=== PATIENT | female | born 1960 | race African-American/Black ===

== ENCOUNTER 2019-07-02 12:12 | Inpatient (IN) | payer OTHER ==
[2019-07-02 15:33] VITALS: BMI 32.8
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
[2019-07-02] MEDS ORDERED: MENTHOL/PHENOL 1 EACH UD MM PRN (16:44)
[2019-07-02] MEDS ORDERED: IBUPROFEN 400 MG TABLET (FP) PO PRN (16:44)
[2019-07-02] MEDS ORDERED: ACETAMINOPHEN 325 MG TABLET (FP) PO PRN (16:44)
[2019-07-02] MEDS ORDERED: MAGNESIUM CITRATE 300 ML BOTTLE PO PRN (16:44)
[2019-07-02] MEDS ORDERED: guaiFENesin 200 MG/10 ML 10 ML UNIT-DOSE CUPS PO PRN (16:44)
[2019-07-02] MEDS ORDERED: LOPERAMIDE HCL 2 MG CAPSULE PO PRN (16:44)
[2019-07-02] MEDS ORDERED: P-EPHED 60MG/TRIPROLIDI 2.5MG TABLET PO PRN (16:44)
[2019-07-02] MEDS ORDERED: MAG HYDROX/AL HYDROX/SIMETH 30 ML UNIT-DOSE CUP PO PRN (16:44)
[2019-07-02] MEDS ORDERED: ALBUTEROL SO4 8 GM HFA INHALER IH PRN (16:45)
[2019-07-02] MEDS ORDERED: MELATONIN 5 MG TABLETS PO PRN (22:00)
[2019-07-02] MEDS: THIAMINE HCL 100 MG TABLET (FP) PO SCH (22:02)
[2019-07-02] MEDS: NICOTINE 21 MG/24 HOURS TOPICAL PATCH TD SCH (22:02)
[2019-07-03] MEDS ORDERED: METHADONE HCL 10 MG TABLET PO SCH (07:15)
[2019-07-03] MEDS ORDERED: METHADONE HCL 40 MG DISPERSABLE TABLET ONE (07:28)
[2019-07-03] MEDS ORDERED: METHADONE HCL 10 MG TABLET ONE (07:28)
[2019-07-03] MEDS: METHADONE 80 MG, METHADONE 10 MG PO SCH (07:29)
[2019-07-03] MEDS: PRENATAL VITAMINS W/ FOLIC ACID TABLET (FP) PO SCH (09:48)
[2019-07-03] MEDS: NICOTINE 21 MG/24 HOURS TOPICAL PATCH TD SCH (09:48)
[2019-07-03 12:49] LABS: HEMATOCRIT 41.9 % (32.4-45.2); HEMOGLOBIN 13.6 GM/dL (10.7-15.3); MCH 31.3 pg (25.7-33.7); MCHC 32.5 g/dl (32.0-36.0); MEAN CELL VOLUME 96.3 fl (80-96); MEAN PLT VOLUME 7.7 fl (7.5-11.1); PLATELET COUNT 258 K/MM3 (134-434); RBC 4.35 M/mm3 (3.60-5.2); RDW 13.2 % (11.6-15.6); WHITE BLOOD COUNT 4.7 K/mm3 (4.0-10.0)
[2019-07-03 12:56] LABS: ALBUMIN 3.7 g/dl (3.4-5.0); BILIRUBIN,TOTAL 0.5 mg/dL (0.2-1); CALCIUM 9.3 mg/dL (8.5-10.1); POTASSIUM 4.4 mmol/L (3.5-5.1); TOT PROT 7.4 g/dl (6.4-8.2)
[2019-07-03 17:17] LABS: URINE APPEARANCE CLOUDY; URINE BILIRUBIN NEGATIVE (NEGATIVE); URINE COLOR YELLOW; URINE GLUCOSE (UA) NEGATIVE (NEGATIVE); URINE KETONE NEGATIVE (NEGATIVE); URINE LEUK ESTERASE NEGATIVE (NEGATIVE); URINE NITRITE NEGATIVE (NEGATIVE); URINE PROTEIN NEGATIVE (NEGATIVE)
[2019-07-03] MEDS: THIAMINE HCL 100 MG TABLET (FP) PO SCH (21:48)
[2019-07-04] MEDS ORDERED: METHADONE HCL 10 MG TABLET ONE (06:23)
[2019-07-04] MEDS ORDERED: METHADONE HCL 40 MG DISPERSABLE TABLET ONE (06:23)
[2019-07-04] MEDS: METHADONE 80 MG, METHADONE 10 MG PO SCH (09:03)
[2019-07-04] MEDS: NICOTINE 21 MG/24 HOURS TOPICAL PATCH TD SCH (09:50)
[2019-07-04] MEDS: PRENATAL VITAMINS W/ FOLIC ACID TABLET (FP) PO SCH (09:50)
[2019-07-04] MEDS: THIAMINE HCL 100 MG TABLET (FP) PO SCH (21:47)
[2019-07-05] MEDS ORDERED: METHADONE HCL 40 MG DISPERSABLE TABLET ONE (06:24)
[2019-07-05] MEDS ORDERED: METHADONE HCL 10 MG TABLET ONE (06:24)
[2019-07-05] MEDS: METHADONE 80 MG, METHADONE 10 MG PO SCH (06:25)
[2019-07-05] MEDS: NICOTINE 21 MG/24 HOURS TOPICAL PATCH TD SCH (09:54)
[2019-07-05] MEDS: PRENATAL VITAMINS W/ FOLIC ACID TABLET (FP) PO SCH (09:54)
[2019-07-05] MEDS: MAGNESIUM HYDROX 2400MG/30ML ORAL SUSPENSION 30 ML CUP PO PRN ×2 (09:54→21:49)
--- NOTE | 2019-07-05 15:17 | CONSULT ---
[facility] Psychiatric Consult - Data Date of interview: 07/05/19 Admission source: [facility] Identifying data: Wetland Scientist approached patient for psychiatric consultation. Patient able to walk into office and sit down to speak to web content writer but after several seconds patient stood up and walked out. Patient stated, "it's ok i dont want to speak to you. i'm going to leave tomrrow morning." Nursing staff informed.
[2019-07-05] MEDS: THIAMINE HCL 100 MG TABLET (FP) PO SCH (21:48)
[2019-07-06] MEDS ORDERED: METHADONE HCL 10 MG TABLET ONE (06:01)
[2019-07-06] MEDS ORDERED: METHADONE HCL 40 MG DISPERSABLE TABLET ONE (06:02)
[2019-07-06] MEDS: METHADONE 80 MG, METHADONE 10 MG PO SCH (07:40)
[2019-07-06] MEDS: NICOTINE 21 MG/24 HOURS TOPICAL PATCH TD SCH (10:50)
[2019-07-06] MEDS: PRENATAL VITAMINS W/ FOLIC ACID TABLET (FP) PO SCH (10:50)
[2019-07-06] MEDS: DOCUSATE SODIUM 100 MG CAPSULE (FP) PO SCH ×2 (14:16→21:31)
[2019-07-06] MEDS ORDERED: PT OWN MED DRAWER 7, Y5N ONE (20:09)
[2019-07-06] MEDS: THIAMINE HCL 100 MG TABLET (FP) PO SCH (21:31)
[2019-07-06] MEDS: SENNOSIDES 8.6MG TABLET (FP) PO SCH (21:56)
[2019-07-07] MEDS: METHADONE 80 MG, METHADONE 10 MG PO SCH ×2 (06:27→09:22)
[2019-07-07] MEDS: DOCUSATE SODIUM 100 MG CAPSULE (FP) PO SCH ×3 (06:27→21:54)
[2019-07-07] MEDS ORDERED: METHADONE HCL 40 MG DISPERSABLE TABLET ONE (08:40)
[2019-07-07] MEDS ORDERED: METHADONE HCL 10 MG TABLET ONE (08:40)
[2019-07-07] MEDS: NICOTINE 21 MG/24 HOURS TOPICAL PATCH TD SCH (09:23)
[2019-07-07] MEDS: PRENATAL VITAMINS W/ FOLIC ACID TABLET (FP) PO SCH (09:23)
[2019-07-07] MEDS ORDERED: NICOTINE POLACRILEX 2 MG GUM BUC PRN (09:43)
--- NOTE | 2019-07-07 09:49 | PN ---
[facility] Progress Note Note: S: Patient feels that the orange methadone is stronger than the red methadone. Patient seen yesterday by PA and staff from [facility] about adjusting her methadone to an effective dose. O: CBC WBC 4.7 K/mm3 (4.0-10.0) 07/03/19 08:42 RBC 4.35 M/mm3 (3.60-5.2) 07/03/19 08:42 Hgb 13.6 GM/dL (10.7-15.3) 07/03/19 08:42 Hct 41.9 % (32.4-45.2) 07/03/19 08:42 MCV 96.3 fl (80-96) H 07/03/19 08:42 MCH 31.3 pg (25.7-33.7) 07/03/19 08:42 MCHC 32.5 g/dl (32.0-36.0) 07/03/19 08:42 RDW 13.2 % (11.6-15.6) 07/03/19 08:42 Plt Count 258 K/MM3 (134-434) 07/03/19 08:42 MPV 7.7 fl (7.5-11.1) D 07/03/19 08:42 Vital Signs (72 hours) 07/05/19 07/05/19 07/05/19 00:30 03:30 07:39 Temperature 98.1 F Pulse Rate 80 Respiratory 18 19 18 Rate Blood Pressure 174/78 H 07/05/19 07/06/19 07/06/19 09:32 00:30 07:16 Temperature 98.3 F Pulse Rate 91 H 84 Respiratory 18 18 Rate Blood Pressure 146/90 127/86 07/06/19 07/07/19 07/07/19 10:00 03:30 06:52 Temperature 97.8 F Pulse Rate 94 H 66 Respiratory 18 16 Rate Blood Pressure 117/64 161/72 Physical: General: no apparent distress Neuro: cn 2-12 intact Skin: clear HEENTM: PERRLA, normocephalic MSK: full weight bearing, full ROM, steady gait. A: [facility] P: patient states she will take present dose and work with [facility] staff upon discharge to adjust dose of methadone.
[2019-07-07] MEDS ORDERED: PT OWN MED DRAWER 7, Y5N ONE (20:05)
[2019-07-07] MEDS: SENNOSIDES 8.6MG TABLET (FP) PO SCH (21:54)
[2019-07-07] MEDS: THIAMINE HCL 100 MG TABLET (FP) PO SCH (21:54)
[2019-07-07] MEDS: COLLOIDAL OATMEAL 1 BAR EACH TP PRN (21:56)
[2019-07-08] MEDS: DOCUSATE SODIUM 100 MG CAPSULE (FP) PO SCH ×3 (06:28→21:27)
--- NOTE | 2019-07-08 09:26 | PN ---
[facility] Progress Note (SOAP) Subjective: patient with elevated BP, c/o fatigue at present time. PMHx of HTN. Last time she received a prescription for Norvasc was in 2017 (confirmed with her pharmacy ) Objective: 07/08/19 09:27 Vital Signs (72 hours) 07/05/19 07/06/19 07/06/19 09:32 00:30 07:16 Temperature 98.3 F Pulse Rate 91 H 84 Respiratory 18 18 Rate Blood Pressure 146/90 127/86 07/06/19 07/07/19 07/07/19 10:00 03:30 06:52 Temperature 97.8 F Pulse Rate 94 H 66 Respiratory 18 16 Rate Blood Pressure 117/64 161/72 07/08/19 07/08/19 07/08/19 00:30 03:30 07:14 Temperature 98 F Pulse Rate 69 Respiratory 18 18 18 Rate Blood Pressure 175/72 H 07/08/19 09:27 P/E: General: no apparent distress HEENTM: PERRLA Neck: no JVD Lungs: clear Heart: s1 s2 audible, regular neuro: CN 2-12 intact. 07/08/19 09:28 07/08/19 09:28 Assessment: HTN 07/08/19 09:28 Plan: Will start Norvasc at previous dose. Advised patient to see PCP when discharged for on-going treatment of HTN.
[2019-07-08] MEDS: PRENATAL VITAMINS W/ FOLIC ACID TABLET (FP) PO SCH (10:08)
[2019-07-08] MEDS: amLODIPine BESYLATE 5 MG TABLET (FP) PO SCH (10:09)
[2019-07-08] MEDS: NICOTINE 21 MG/24 HOURS TOPICAL PATCH TD SCH (10:10)
[2019-07-08] MEDS ORDERED: METHADONE HCL 10 MG TABLET ONE (10:47)
[2019-07-08] MEDS ORDERED: METHADONE HCL 40 MG DISPERSABLE TABLET ONE (10:47)
[2019-07-08] MEDS: METHADONE 80 MG, METHADONE 10 MG PO SCH (10:48)
[2019-07-08] MEDS: MINERAL OIL/PETROLAT/WATER TOPICAL CREAM 113 GM JAR TP PRN (10:52)
[2019-07-08] MEDS ORDERED: PT OWN MED DRAWER 7, Y5N ONE (10:53)
--- NOTE | 2019-07-08 15:46 | PN ---
[facility] Progress Note Note: Started patient on Norvasc, BP @152/69 HR-59. will continue to monitor. Vital Signs (72 hours) 07/06/19 07/06/19 07/06/19 00:30 07:16 10:00 Temperature 98.3 F Pulse Rate 84 94 H Respiratory 18 18 Rate Blood Pressure 127/86 117/64 07/07/19 07/07/19 07/08/19 03:30 06:52 00:30 Temperature 97.8 F Pulse Rate 66 Respiratory 18 16 18 Rate Blood Pressure 161/72 07/08/19 07/08/19 07/08/19 03:30 07:14 09:31 Temperature 98 F Pulse Rate 69 67 Respiratory 18 18 Rate Blood Pressure 175/72 H 175/81 H 07/08/19 15:41 Temperature Pulse Rate 59 L Respiratory Rate Blood Pressure 152/69
[2019-07-08] MEDS: THIAMINE HCL 100 MG TABLET (FP) PO SCH (21:27)
[2019-07-08] MEDS: MELATONIN 5 MG TABLETS PO PRN (21:27)
[2019-07-08] MEDS: SENNOSIDES 8.6MG TABLET (FP) PO SCH (21:27)
[2019-07-09] MEDS: DOCUSATE SODIUM 100 MG CAPSULE (FP) PO SCH ×3 (06:51→21:23)
[2019-07-09] MEDS ORDERED: METHADONE HCL 10 MG TABLET ONE (09:00)
[2019-07-09] MEDS ORDERED: METHADONE HCL 40 MG DISPERSABLE TABLET ONE (09:01)
[2019-07-09] MEDS: METHADONE 80 MG, METHADONE 10 MG PO SCH (09:01)
[2019-07-09] MEDS: amLODIPine BESYLATE 5 MG TABLET (FP) PO SCH (09:03)
[2019-07-09] MEDS: PRENATAL VITAMINS W/ FOLIC ACID TABLET (FP) PO SCH (09:03)
[2019-07-09] MEDS: NICOTINE 21 MG/24 HOURS TOPICAL PATCH TD SCH (09:03)
[2019-07-09] MEDS: COLLOIDAL OATMEAL 1 BAR EACH TP PRN (09:05)
[2019-07-09] MEDS: MINERAL OIL/PETROLAT/WATER TOPICAL CREAM 113 GM JAR TP PRN (09:05)
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
[2019-07-09] MEDS: THIAMINE HCL 100 MG TABLET (FP) PO SCH (21:22)
[2019-07-09] MEDS: SENNOSIDES 8.6MG TABLET (FP) PO SCH (21:23)
[2019-07-09] MEDS: QUEtiapine FUMARATE 50 MG TABLET PO SCH (21:24)
[2019-07-10] MEDS: DOCUSATE SODIUM 100 MG CAPSULE (FP) PO SCH ×3 (07:44→21:18)
[2019-07-10] MEDS ORDERED: METHADONE HCL 40 MG DISPERSABLE TABLET ONE (10:02)
[2019-07-10] MEDS ORDERED: METHADONE HCL 10 MG TABLET ONE (10:02)
[2019-07-10] MEDS: METHADONE 80 MG, METHADONE 10 MG PO SCH (10:12)
[2019-07-10] MEDS: amLODIPine BESYLATE 5 MG TABLET (FP) PO SCH (10:13)
[2019-07-10] MEDS: PRENATAL VITAMINS W/ FOLIC ACID TABLET (FP) PO SCH (10:13)
[2019-07-10] MEDS: NICOTINE 21 MG/24 HOURS TOPICAL PATCH TD SCH (10:14)
[2019-07-10] MEDS: SENNOSIDES 8.6MG TABLET (FP) PO SCH (21:18)
[2019-07-10] MEDS: THIAMINE HCL 100 MG TABLET (FP) PO SCH (21:18)
[2019-07-10] MEDS: QUEtiapine FUMARATE 50 MG TABLET PO SCH (21:18)
[2019-07-11] MEDS: DOCUSATE SODIUM 100 MG CAPSULE (FP) PO SCH ×3 (06:29→21:09)
[2019-07-11] MEDS ORDERED: METHADONE HCL 10 MG TABLET ONE (09:49)
[2019-07-11] MEDS: PRENATAL VITAMINS W/ FOLIC ACID TABLET (FP) PO SCH (09:50)
[2019-07-11] MEDS: amLODIPine BESYLATE 5 MG TABLET (FP) PO SCH (09:50)
[2019-07-11] MEDS ORDERED: METHADONE HCL 40 MG DISPERSABLE TABLET ONE (09:50)
[2019-07-11] MEDS: NICOTINE 21 MG/24 HOURS TOPICAL PATCH TD SCH (09:51)
[2019-07-11] MEDS: METHADONE 80 MG, METHADONE 10 MG PO SCH (09:51)
[2019-07-11] MEDS: COLLOIDAL OATMEAL 1 BAR EACH TP PRN (11:50)
[2019-07-11] MEDS ORDERED: PT OWN MED DRAWER 7, Y5N ONE (19:43)
[2019-07-11] MEDS: SENNOSIDES 8.6MG TABLET (FP) PO SCH (21:08)
[2019-07-11] MEDS: QUEtiapine FUMARATE 50 MG TABLET PO SCH (21:08)
[2019-07-11] MEDS: THIAMINE HCL 100 MG TABLET (FP) PO SCH (21:08)
[2019-07-11] MEDS: MELATONIN 5 MG TABLETS PO PRN (21:08)
[2019-07-12] MEDS: DOCUSATE SODIUM 100 MG CAPSULE (FP) PO SCH ×3 (06:34→21:38)
[2019-07-12] MEDS: PRENATAL VITAMINS W/ FOLIC ACID TABLET (FP) PO SCH (10:20)
[2019-07-12] MEDS: amLODIPine BESYLATE 5 MG TABLET (FP) PO SCH (10:20)
[2019-07-12] MEDS: NICOTINE 21 MG/24 HOURS TOPICAL PATCH TD SCH (10:21)
[2019-07-12] MEDS: METHADONE 80 MG, METHADONE 10 MG PO SCH (10:21)
[2019-07-12] MEDS: MELATONIN 5 MG TABLETS PO PRN (21:38)
[2019-07-12] MEDS: THIAMINE HCL 100 MG TABLET (FP) PO SCH (21:38)
[2019-07-12] MEDS: QUEtiapine FUMARATE 50 MG TABLET PO SCH (21:38)
[2019-07-12] MEDS: SENNOSIDES 8.6MG TABLET (FP) PO SCH (21:39)
[2019-07-13] MEDS: DOCUSATE SODIUM 100 MG CAPSULE (FP) PO SCH (07:35)
[2019-07-13] MEDS ORDERED: METHADONE HCL 10 MG TABLET ONE (10:23)
[2019-07-13] MEDS: PRENATAL VITAMINS W/ FOLIC ACID TABLET (FP) PO SCH (10:23)
[2019-07-13] MEDS: METHADONE 80 MG, METHADONE 10 MG PO SCH (10:23)
[2019-07-13] MEDS ORDERED: METHADONE HCL 40 MG DISPERSABLE TABLET ONE (10:23)
[2019-07-13] MEDS: NICOTINE 21 MG/24 HOURS TOPICAL PATCH TD SCH (10:23)
[2019-07-13] MEDS: amLODIPine BESYLATE 5 MG TABLET (FP) PO SCH (10:25)
[2019-07-13] MEDS ORDERED: DOCUSATE SODIUM 100 MG CAPSULE (FP) PO PRN (11:30)
--- NOTE | 2019-07-13 12:13 | PN ---
[facility] Progress Note Note: Patient states she does not like taste of methadone. Patient explained that methadone provided at [facility] is in liquid form and not given in tablets. Patient stated " it is okay, I will deal with it". Vital Signs Temperature 98.0 F 07/13/19 07:10 Pulse Rate 98 H 07/13/19 07:10 Respiratory Rate 18 07/13/19 07:10 Blood Pressure 146/79 07/13/19 07:10 O2 Sat by Pulse Oximetry (%)
[2019-07-13] MEDS ORDERED: PT OWN MED DRAWER 7, Y5N ONE (14:06)
[2019-07-13] MEDS: COLLOIDAL OATMEAL 1 BAR EACH TP PRN (14:07)
[2019-07-13] MEDS: SENNOSIDES 8.6MG TABLET (FP) PO SCH (21:33)
[2019-07-13] MEDS: THIAMINE HCL 100 MG TABLET (FP) PO SCH (21:33)
[2019-07-13] MEDS: QUEtiapine FUMARATE 50 MG TABLET PO SCH (21:33)
[2019-07-14] MEDS ORDERED: METHADONE HCL 10 MG TABLET ONE (09:07)
[2019-07-14] MEDS ORDERED: METHADONE HCL 40 MG DISPERSABLE TABLET ONE (09:08)
[2019-07-14] MEDS: METHADONE 80 MG, METHADONE 10 MG PO SCH (10:38)
[2019-07-14] MEDS: PRENATAL VITAMINS W/ FOLIC ACID TABLET (FP) PO SCH (10:39)
[2019-07-14] MEDS: amLODIPine BESYLATE 5 MG TABLET (FP) PO SCH (10:39)
[2019-07-14] MEDS: NICOTINE 21 MG/24 HOURS TOPICAL PATCH TD SCH (10:39)
[2019-07-14] MEDS: THIAMINE HCL 100 MG TABLET (FP) PO SCH (21:27)
[2019-07-14] MEDS: QUEtiapine FUMARATE 50 MG TABLET PO SCH (21:27)
[2019-07-14] MEDS: SENNOSIDES 8.6MG TABLET (FP) PO SCH (21:27)
[2019-07-15] MEDS: NICOTINE 21 MG/24 HOURS TOPICAL PATCH TD SCH (10:29)
[2019-07-15] MEDS: amLODIPine BESYLATE 5 MG TABLET (FP) PO SCH (10:29)
[2019-07-15] MEDS: PRENATAL VITAMINS W/ FOLIC ACID TABLET (FP) PO SCH (10:29)
[2019-07-15] MEDS ORDERED: METHADONE HCL 10 MG TABLET ONE (10:30)
[2019-07-15] MEDS: METHADONE 80 MG, METHADONE 10 MG PO SCH ×2 (10:31→11:10)
[2019-07-15] MEDS ORDERED: METHADONE HCL 40 MG DISPERSABLE TABLET ONE (10:31)
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
--- NOTE | 2019-07-15 14:47 | PN ---
[facility] Progress Note Note: Patient is scheduled for discharge tomorrow. Script for 30 days supply ofSeroquel 50 mg/hs will be electronically transmitted to [facility] at [address] [place], [place] [id number]
[2019-07-15] MEDS: MELATONIN 5 MG TABLETS PO PRN (21:35)
[2019-07-15] MEDS: QUEtiapine FUMARATE 50 MG TABLET PO SCH (21:35)
[2019-07-15] MEDS: THIAMINE HCL 100 MG TABLET (FP) PO SCH (21:35)
[2019-07-15] MEDS: SENNOSIDES 8.6MG TABLET (FP) PO SCH (21:35)
[2019-07-16 07:28] VITALS: TEMP 97.7
[2019-07-16] MEDS ORDERED: METHADONE HCL 10 MG TABLET ONE (09:10)
[2019-07-16] MEDS ORDERED: METHADONE HCL 40 MG DISPERSABLE TABLET ONE (09:10)
[2019-07-16 09:11] VITALS: BP 149/76; PULSE 74
[2019-07-16] MEDS: PRENATAL VITAMINS W/ FOLIC ACID TABLET (FP) PO SCH (09:11)
[2019-07-16] MEDS: amLODIPine BESYLATE 5 MG TABLET (FP) PO SCH (09:11)
[2019-07-16] MEDS: METHADONE 80 MG, METHADONE 10 MG PO SCH (09:11)
[2019-07-16] MEDS: NICOTINE 21 MG/24 HOURS TOPICAL PATCH TD SCH (09:13)
== END 2019-07-16 09:50 | disposition home or self-care (01) | DRG 772 ==
LOC: YASAS 12:12 → Y3E 17:08
PROVIDERS: ADMIT Neuromusculoskeletal Medicine & OMM; ATTEND Neuromusculoskeletal Medicine & OMM
PROC: HZ42ZZZ Group Counseling for Substance Abuse Treatment, Cognitive-Behavioral (ICD-10-PCS; principal; 2019-07-02)
DX: F11.20 Opioid dependence, uncomplicated (principal); F14.10 Cocaine abuse, uncomplicated; F17.210 Nicotine dependence, cigarettes, uncomplicated; F19.282 Other psychoactive substance dependence with psychoactive substance-induced sleep disorder; I10 Essential (primary) hypertension; J45.909 Unspecified asthma, uncomplicated; Z62.810 Personal history of physical and sexual abuse in childhood; Z86.11 Personal history of tuberculosis; Z91.018 Allergy to other foods; Z91.5 Personal history of self-harm
CPT/HCPCS: 36415; 80053; 81003; 85027; 86593